=== PATIENT | male | born 1965 | race Caucasian/White ===

== ENCOUNTER 2022-03-09 05:57 | Emergency (ER) | payer BC ==
[~2022-03-09] VITALS: Ht 182.9 cm; Wt 81.8 kg
[2022-03-09 06:04] VITALS: BP 141/91
[2022-03-09 06:15] VITALS: BP 135/89
[2022-03-09 06:30] VITALS: BP 131/90
[2022-03-09] MEDS ORDERED: TRAMADOL HYDROC50 M1 PO (08:33)
[2022-03-09] MEDS ORDERED: CYCLOBENZAPRINE10 MG PO (08:33)
[2022-03-09 08:43] VITALS: BP 131/90
== END 2022-03-09 08:52 | disposition home or self-care (01) | DRG 552 ==
LOC: ED 05:57
DX: M51.17 Intervertebral disc disorders with radiculopathy, lumbosacral region (principal)